=== PATIENT | female | born 1975 | race Two or more races ===

== ENCOUNTER 2022-12-16 10:04 | Outpatient (CLI) | payer OTHER | END 2022-12-16 10:09 | disposition home or self-care (01) | LOC: SONOGRAMA 10:04 | PROVIDERS: ATTEND Pathology Anatomic Pathology & Clinical Pathology | DX: D34 Benign neoplasm of thyroid gland (principal); D44.0 Neoplasm of uncertain behavior of thyroid gland; E07.9 Disorder of thyroid, unspecified; E04.9 Nontoxic goiter, unspecified ==

== ENCOUNTER 2024-12-21 10:21 | Inpatient (IN) | payer OTHER ==
[~2024-12-21] VITALS: Ht 162.6 cm; Wt 907.2 kg
[2024-12-21] MEDS ORDERED: BISOPROLOL-HCT1 EAC2 PO (11:11)
[2024-12-21] MEDS ORDERED: PREVACID30 MG PO (11:11)
[2024-12-21] MEDS ORDERED: SINGULAIR10 MG PO (11:11)
[2024-12-21] MEDS ORDERED: SYMBICORT 16010.2 GM IH (11:12)
[2024-12-21] MEDS ORDERED: PEPCID AC20 MG PO (11:12)
[2024-12-21 11:18] VITALS: BP 128/82
[2024-12-27] MEDS ORDERED: DEXAMETHASONE SODIUM PHOSPHATE 4 MG/ML VIAL ONE (12:21)
[2024-12-27] MEDS ORDERED: ENALAPRILAT DIHYDRATE 1.25 MG/ML VIAL IV PRN (15:00)
[2024-12-27] MEDS ORDERED: ONDANSETRON HCL 2 MG/ML VIAL IV PRN (15:00)
[2024-12-27] MEDS ORDERED: ACETAMINOPHEN 500 MG GEL..CAP PO SCH (17:00)
[2024-12-27] MEDS ORDERED: TRAMADOL HCL 50 MG TABLET PO SCH (17:00)
[2024-12-27] MEDS ORDERED: CYCLOBENZAPRINE HCL 5 MG TABLET PO SCH (17:00)
[2024-12-27] MEDS ORDERED: GABAPENTIN 100 MG CAPSULE PO SCH (17:00)
[2024-12-27] MEDS ORDERED: PANTOPRAZOLE SODIUM 40 MG/VIAL VIAL ONE (20:54)
[2024-12-27] MEDS ORDERED: PANTOPRAZOLE SODIUM 40 MG/VIAL VIAL IV PUSH SCH (21:00)
[2024-12-27] MEDS ORDERED: Calcium Carbonate 1 TAB TABLET PO SCH (21:00)
[2024-12-28] VITALS: BP 136/79; O2SAT 89
[2024-12-28] MEDS ORDERED: LEVOTHYROXINE SODIUM 137 MCG TABLET PO SCH (06:00)
[2024-12-28 08:50] VITALS: BP 106/71; O2SAT 94
== END 2024-12-28 13:00 | disposition home or self-care (01) | DRG 627 ==
LOC: O/R 12-27 09:01 → SURG 12-27 12:00 → SURH 12-27 15:57 → SURG 01-07 13:12 → O/R 01-07 13:14 → SURG 01-07 13:14 → O/R 01-07 13:20 → SURG 01-07 22:00
PROVIDERS: ADMIT Surgery; ATTEND Surgery
PROC: 0GTK0ZZ Resection of Thyroid Gland, Open Approach (ICD-10-PCS; principal; 2024-12-27 13:00)
DX: C73 Malignant neoplasm of thyroid gland (principal); E04.2 Nontoxic multinodular goiter

== ENCOUNTER → 2025-01-04 11:42 | Outpatient (CLI) | payer OTHER ==
[~2025-01-04 11:42] MED LIST: BISOPROLOL-HCT1 EAC2 PO; PEPCID AC20 MG PO; PREVACID30 MG PO; SINGULAIR10 MG PO; SYMBICORT 16010.2 GM IH
[2025-01-04 14:00] LABS: ALBUMIN 3.6 gm/dL (3.4-5.0); CALCIUM 7.9 mg/dL (8.5-10.1); CREATININE SERUM 0.57 mg/dL (0.55-1.02); GFR 111.82; PHOSPHOROUS 5.7 mg/dL (2.5-4.9); POTASSIUM 3.98 mEq/L (3.5-5.1); T4 FREE 1.46 NG/ML (0.76-1.46); TSH 0.457 uIU/mL (0.358-3.74)
== END | disposition home or self-care (01) ==
LOC: LAB 11:42
PROVIDERS: ATTEND Surgery
DX: E21.0 Primary hyperparathyroidism (principal); E55.9 Vitamin D deficiency, unspecified; E03.9 Hypothyroidism, unspecified; E04.2 Nontoxic multinodular goiter